=== PATIENT | female | born 1955 | race Caucasian/White ===

== ENCOUNTER 2017-05-08 | Inpatient (IN) | payer BC ==
--- NOTE | ~2017-05-08 | TN ---
Unit #: [id number] #: [id number] Patient: [facility]RISTIANSON [id number] [facility] [address] [place] [address] [id number] I MR#: [id number] NAME: LULY CHRISTIANSON ROOM: 71 Age: 62 Sex: F Admission Date: 05/08/2017 : 1955 Discharge Date: 05/11/2017 Attending Physician: Carlos De La Garza M.D. Primary Care Physician: Generic Doctor Not In System LOC TRANSFER NOTE DATE OF SERVICE: 05/14/2017 HISTORY OF PRESENT ILLNESS Ms. Christianson is a 62-year-old, , white female with history of alcohol dependence, who was stepped down to the outpatient treatment program from the adult inpatient psychiatric unit, where she was hospitalized under care of Dr. De La Garza from 05/08/2017 to 05/11/2017 and was brought to the hospital for alcohol dependence. On evaluation by me today, the patient was seen to be anxious, jittery, restless, tremulous, and tearful, and she stated that she was hospitalized because her family forced her to and she was not having a good time because she could not get out and get a drink and she was constantly having cravings; however, she reports that since she has been out of there, her family does not feel comfortable as she had just such a brief treatment duration there and they wanted her to go to a 30-day program which she does not want to do that and was seen to be tearful while talking about it and was seen to be quite anxious and restless and reports that she has not slept in the last several nights. However, she denies any suicidal ideations, intent, or plan. SUBSTANCE ABUSE HISTORY The patient reports long history of alcohol dependence and has been drinking regularly and heavily, though I noted that she was trying to mask and minimize her consumption. She denies any other substance abuse. PAST PSYCHIATRIC HISTORY The patient has [facility] and review of the medical records indicate currently she is not active in any treatment program, is not seeing a psychiatrist. PAST MEDICAL HISTORY No acute or chronic medical illnesses. ALLERGIES No known medication allergies. PERSONAL AND SOCIAL HISTORY A 62-year-old white female, who reports that she lives at home with her family and has fairly decent social support system. MENTAL STATUS EXAMINATION An elderly white female who was casually dressed with fair personal hygiene, appears to be in no acute distress or discomfort. She was awake and alert on interaction with intact orientation. Her mood was anxious Unit #: [id number] #: [id number] Patient: LULY CHRISTIANSON with a congruent affect. She denies any suicidal or homicidal ideations and also denies any auditory or visual hallucinations. Her insight and judgment remain slightly impaired. DIAGNOSTIC IMPRESSION Psychiatric: Alcohol dependence, moderate; alcohol-induced mood disorder. Medical: None. Stressors: Moderate psychosocial stressors. TREATMENT PLAN 1. The patient has presented with history of mood disorder and substance abuse. We will recommend enrolling her into the outpatient treatment program and maintaining her on her current medications. We will monitor her response and make further adjustments as needed. 2. Supportive therapy was provided to the patient. 3. Safe, structured, and nourishing environment will be provided. ESTIMATED LENGTH OF STAY 14 to 21 days. ABILITY TO HELP SELF Limited. WILLINGNESS TO HELP SELF The patient appears to be willing to help self. STRENGTHS 1. Communicative. 2. Cooperative. PROBLEMS 1. Chronic dysphoric symptoms. 2. Chronic chemical dependency. 3. Poor social support system. DISCHARGE CRITERIA This will be contingent upon the patient's ability to show resolution of her depression and anxiety and her ability to stay safe to herself, particularly after discharge from the program. Dictated by... Angelito Conner/jyothi TD: 05/15/2017 06:37 JOB #: [id number] LOC TRANSFER NOTE Page 1 of 1 X Lucretia Clinton MD X LOC TRANSFER NOTE
--- NOTE | ~2017-05-08 | HP ---
Unit #: [id number] #: [id number] Patient: LULY JENSEN [id number] [place] [address] [id number] MR#: [id number] NAME: LULY JENSEN ROOM: P171 Age: 62 Sex: F Admission Date: 05/08/2017 : 1955 Attending Physician: Carlos De La Garza M.D. Admitting Physician: Carlos De La Garza M.D. Primary Care Physician: Generic Doctor Not In System HISTORY AND PHYSICAL HISTORY OF PRESENT ILLNESS Luly is a 62 year old admitted to [facility] because of her abuse of alcohol. PAST MEDICAL HISTORY 1. Long history of alcohol abuse. 2. High blood pressure. 3. COPD. PAST SURGICAL HISTORY 1. x2. 2. Bilateral carpal tunnel release. ALLERGIES No known drug allergies. SOCIAL HISTORY Smokes greater than 1 pack per day. Drinks at least a fifth of liquor on a daily basis and denies illicit drug use. FAMILY HISTORY Medically noncontributory. REVIEW OF SYSTEMS CONSTITUTIONAL: No fever or chills. HEENT: Denies any sore throat, ear pain or runny nose. CARDIOVASCULAR: Denies chest pain, irregular heart rhythm or palpitations. CHEST: Denies shortness of breath or cough. No hemoptysis. GASTROINTESTINAL: Denies nausea, vomiting, diarrhea or chronic constipation. ENDOCRINE: Denies history of increased thirst or urination. No recent significant weight loss or gain. GENITOURINARY: Denies dysuria, frequency, or hematuria. SKIN: Denies any rashes. HEMATOLOGIC: Denies history of increased bleeding or bruising. MUSCULOSKELETAL: Denies any hot, swollen joints. No generalized muscle pain. NEUROLOGIC: Denies problems with vision or speech. No frequent, severe headaches. No numbness, tingling or weakness in any extremities. Denies loss of bladder or bowel control. CURRENT MEDICATIONS 1. Detox protocol. 2. Zestril 20 mg daily. Unit #: [id number] #: [id number] Patient: LULY JENSEN PHYSICAL EXAMINATION GENERAL: Alert, well-nourished, in no apparent distress. VITAL SIGNS: Blood pressure 184/98, heart rate 100, respirations 16, temperature 98.6. WEIGHT: 130. HEIGHT: 5 feet 2 inches. SKIN: Warm and dry without rash or lesion. HEENT: Normocephalic. TMs not viewed. Oral and nasal passages clear. Conjunctivae clear. PERRLA. EOMs intact. NECK: Supple without lymphadenopathy or thyromegaly. HEART: Regular rate and rhythm without murmur. CHEST: Decreased breath sounds bilaterally. ABDOMEN: Soft, nontender. : Not done. EXTREMITIES: No evidence of cyanosis, clubbing or edema. Moves all without focal deficit. NEUROLOGICAL: Grossly within normal limits. Cranial Nerves: II: Visual navarro are intact. III, IV AND : Extraocular movements are intact. Pupils are equal, round and reactive to light. V: Facial sensation is grossly normal. VII: Facial movements and expression are normal. VIII: Auditory acuity grossly intact. IX, X: Uvula is midline. Phonation is normal. XI: Patient shrugs shoulders and turns head normally. XII: Tongue protrudes in the midline. Sensory and Motor Function: Sensory and motor sensation is grossly normal. Motor: moves all extremities well. Coordination: Gait is normal. Deep Tendon Reflexes: Intact. IMPRESSION 1. Psychiatric admission. 2. Alcohol abuse. 3. Chronic obstructive pulmonary disease. 4. High blood pressure, not controlled on admission. RECOMMENDATIONS PSYCHIATRIC: Per psychiatrist. MEDICAL: 1. See no contraindication to participate in facility's activities. 2. Detox per protocol. 3. Continue Zestril. Monitor blood pressure q. shift. 4. Add Albuterol inhaler q. 4 hours p.r.n. MEDICAL PROGNOSIS Good. MEDICAL CONDITION Stable. Dictated by... Delores Christina PChadAChad-C. for Angelito Celeste/mitra Unit #: [id number] #: [id number] Patient: LULY JENSEN TD: 05/09/2017 15:01 JOB #: [id number] HISTORY AND PHYSICAL Page 1 of 1 X Delores Christina HISTORY AND PHYSICAL
--- NOTE | ~2017-05-08 | PA ---
Unit #: [id number] #: [id number] Patient: LULY JENSEN [id number] [place] [address] [id number] I MR#: [id number] NAME: LULY JENSEN ROOM: [facility] Age: 62 Sex: F Admission Date: 05/08/2017 : 1955 Date of Assessment: 05/09/2017 Attending Physician: Carlos De La Garza M.D. Admitting Physician: Carlos De La Garza M.D. Primary Care Physician: Generic Doctor Not In System PSYCHIATRIC ASSESSMENT DATE OF SERVICE 05/09/2017. INFORMANTS Considered reliable. CHIEF COMPLAINT "I've been drinking way too much alcohol." HISTORY OF PRESENT ILLNESS This patient is a 62-year-old female, who was admitted to the hospital for alcohol detox. She was complaining of nausea and headaches. She is drinking 10 drinks per day. She is unable to stop drinking at this time. She reports prior treatment at age 28. She did report a long period of sobriety at approximately 10 years. The patient is currently living with her . She denies any SI or HI and contracts for safety. The patient denies any other illicit drug use. The patient is drinking up to fifth of liquor on a daily basis at times. PAST PSYCHIATRIC HISTORY The patient reports prior substance abuse treatment for her alcohol at age 28. She is drinking up to a fifth of liquor a day. She denies any other psychiatric history. FAMILY PSYCHIATRIC HISTORY The patient reports significant family history of alcohol abuse. SOCIAL HISTORY The patient is living with her and she has 3 children. She retired from [employer] 10 years ago. She spends most of her time with a sedentary lifestyle with abuse of alcohol. PAST MEDICAL HISTORY High blood pressure and COPD. MEDICATIONS Vistaril 20 mg one p.o. daily, albuterol inhaler q.4 hours p.r.n. ALLERGIES No known drug allergies. SUBSTANCE ABUSE HISTORY The patient has been drinking up to a fifth of liquor daily. She denies Unit #: [id number] #: [id number] Patient: LULY JENSEN any illicit drug use. She is smoking one pack of cigarettes per day. MENTAL STATUS EXAMINATION This patient is a 62-year-old female, who is a bit disheveled and appears older than her stated age. She is alert and oriented x3 and cognitively intact. The patient is goal oriented and focused on her sobriety. She is having headaches and nausea related to withdrawal. Her thought processes are logical and coherent. Speech is regular rate and rhythm. The patient is ambulatory without difficulty. Her intellectual capabilities appeared to be in the average range based on her fund of knowledge. There are no overt psychotic symptoms. She denies any SI or HI and contracts for safety. Memory short-term and long-term is intact. Insight and judgment are fair to good at this time. ASSETS AND LIABILITIES The patient's assets include her voluntary treatment for alcohol detox. Liabilities include inability to maintain sobriety and lack of followup treatment for her substance abuse. ADMITTING DIAGNOSES AXIS I: Alcohol dependence, acute withdrawal uncomplicated. AXIS II: Deferred. AXIS III: Hypertension and chronic obstructive pulmonary disease. AXIS IV: AXIS V: PSYCHIATRIC TREATMENT PLAN This patient was admitted to [facility] for alcohol detox. She will be placed on appropriate detox medications p.r.n. She is encouraged to maintain adequate fluid intake. H and P and laboratory studies will be ordered and reviewed. She will attend group therapy and participate in unit activities. Treatment goals include a safe detox without complications. ESTIMATED LENGTH OF STAY 5 days. Dictated by... Leslie Bocanegra A.P.R.N. for Carlos De La Garza M.D. DONNY/modl TD: 05/12/2017 06:02 JOB #: [id number] PSYCHIATRIC ASSESSMENT Page 1 of 1 X Leslie Bocanegra PSYCHIATRIC ASSESSMENT
[2017-05-09 11:31] LABS: BASOPHIL% 0.2 % (0-2.5); EOSINOPHIL% 0.1 % (0.0-7.0); HEMATOCRIT 47.9 % (35.0-45.0); HEMOGLOBIN 16.2 gm/dL (12.0-16.0); LYMPHOCYTE# 1.5 X10e3 (1.0-3.5); LYMPHOCYTE% 18.2 % (17.0-45.0); MEAN CELL VOLUME 98.5 FL (83-96); MEAN CORPUSCULAR HEMOGLOBIN 33.4 PG (28-34); MEAN CORPUSCULAR HGB CONC 33.9 g/dL (30-36); MEAN PLATELET VOLUME 9.6 FL (6.5-11.5); MONOCYTE# 0.5 X10e3 (0-1.0); MONOCYTE% 6.5 % (3.0-12.0); PLATELET COUNT 87 X10e3 (140-420); RED BLOOD COUNT 4.86 X10e (3.90-5.30); RED CELL DISTRIBUTION WIDTH 14.6 % (11.0-15.5)
[2017-05-09 11:33] LABS: DIFF IND NO
[2017-05-09 11:40] LABS: ALBUMIN SERUM 4.3 g/dL (3.5-5.0); CALCIUM SERUM 9.8 mg/dL (8.4-10.2); CREATININE SERUM 0.5 mg/dL (0.6-1.4); GLOM FILT RATE Estimated 105.2 mL/min (>60); POTASSIUM 3.9 mmol/L (3.5-5.1); PROTEIN TOTAL SERUM 7.3 g/dL (6.0-8.3)
[2017-05-10 12:39] LABS: AMPHETAMINE NEG (NEG); BARBITURATES NEG (NEG); BENZODIAZEPINES POS (NEG); COCAINE NEG (NEG); MARIJUANA NEG (NEG); OPIATES NEG (NEG); TRICYCLIC ANTIDEPRESSANTS NEG (NEG); U METHADONE NEG (NEG)
== END 2017-05-11 12:30 | DRG 897 ==
LOC: P1E 12:46
PROVIDERS: Psychiatry & Neurology Psychiatry
PROC: HZ2ZZZZ Detoxification Services for Substance Abuse Treatment (ICD-10-PCS; principal; 2017-05-08)
DX: F10.239 Alcohol dependence with withdrawal, unspecified (principal); I10 Essential (primary) hypertension; J44.9 Chronic obstructive pulmonary disease, unspecified; F17.210 Nicotine dependence, cigarettes, uncomplicated
CPT/HCPCS: 80053; 80307; 85025

== ENCOUNTER 2017-05-08 02:14 | Emergency (ER) | payer BC ==
--- NOTE | ~2017-05-08 | CR72 ---
[facility] A Service of [facility] & [facility] RADIOLOGY TEXT RESULTS PATIENT: LULY JENSEN LOCATION: [facility] : [birth year] UNIT #: [id number] AGE: [address]: Jt Chung MD SEX: F ORDER DR: [id number] [facility] [address] [place], [place] [address] [id number] MR#: [id number] Acc #: [id number] NAME: LULY JENSEN : 1955 SEX: F STUDY DATE/TIME: 05/08/2017 3:00 UNIT: [facility] ROOM: STUDY DESCRIPTION: CR Chest Single View Portable Attending Physician: Jt Chung M.D. Ordering Physician: Home Piper D.O. Primary Care Physician: Primary Care Physician No MEDICAL IMAGING REPORT This report is preliminary unless electronic signature is present EXAM Single view chest INDICATION Cough for 6 months. Shortness of air and COPD. FINDINGS Single portable AP of the chest without comparison. The heart and mediastinal contours are within normal limits. Lungs are hyperinflated compatible with an obstructive lung disease. No focal consolidation. No pleural effusion. IMPRESSION COPD. Dictated by... Guero Gramajo M.D. THIS IS AN ELECTRONICALLY VERIFIED REPORT Guero Gramajo M.D. at 05/11/2017 4:14 PM Divina TD: 05/08/2017 08:52 JOB #: [id number] MEDICAL IMAGING REPORT Page 1 of 1 COPY
[2017-05-08 03:52] LABS: BASOPHIL% 0.8 % (0-2.5); EOSINOPHIL% 0.1 % (0.0-7.0); HEMATOCRIT 49.2 % (35.0-45.0); HEMOGLOBIN 16.5 gm/dL (12.0-16.0); LYMPHOCYTE# 1.9 X10e3 (1.0-3.5); LYMPHOCYTE% 30.7 % (17.0-45.0); MEAN CELL VOLUME 97.8 FL (83-96); MEAN CORPUSCULAR HEMOGLOBIN 32.9 PG (28-34); MEAN CORPUSCULAR HGB CONC 33.6 g/dL (30-36); MEAN PLATELET VOLUME 8.8 FL (6.5-11.5); MONOCYTE# 0.3 X10e3 (0-1.0); MONOCYTE% 5.7 % (3.0-12.0); NEUTROPHIL# 3.8 X10e3 (1.5-7.1); NEUTROPHIL% 62.7 % (40-75); PLATELET COUNT 96 X10e3 (140-420); RED BLOOD COUNT 5.03 X10e (3.90-5.30); RED CELL DISTRIBUTION WIDTH 14.4 % (11.0-15.5); WHITE BLOOD COUNT 6.1 X10e3 (4.0-10.5)
[2017-05-08 03:52] LABS: POC - CKMB 3.2 ng/mL (0.0-7.9); POC - TROPONIN <0.05 ng/mL (<=0.05)
[2017-05-08 03:54] LABS: DIFF IND NO
[2017-05-08 04:19] LABS: ALKALINE PHOSPHATASE 97 U/L (32-92); ALT (SGPT) 48 U/L (10-40); AST (SGOT) 97 U/L (10-42); BILIRUBIN, DIRECT 0.2 mg/dL (0.0-0.2); BILIRUBIN,INDIRECT 0.6 mg/dL (0.0-0.9); BILIRUBIN,TOTAL 0.8 mg/dL (0.2-2.0); BLOOD UREA NITROGEN 22 mg/dL (9-23); CALCIUM SERUM 8.4 mg/dL (8.4-10.2); CARBON DIOXIDE 21 mmol/L (22-31); CHLORIDE 94 mmol/L (100-111); CREATININE SERUM 0.5 mg/dL (0.6-1.4); GLOM FILT RATE Estimated 105.2 mL/min (>60); GLUCOSE FASTING 83 mg/dL (70-110); POTASSIUM 3.4 mmol/L (3.5-5.1); PROTEIN TOTAL SERUM 6.9 g/dL (6.0-8.3); SALICYLATE <4.0 mg/dL; SODIUM 133 mmol/L (135-145)
[2017-05-08 04:21] LABS: ACETAMINOPHEN <10 ug/mL; ALCOHOL BLOOD 335 mg/dL (0)
[2017-05-08 06:53] LABS: AMPHETAMINE NEG (NEG); BARBITURATES NEG (NEG); BENZODIAZEPINES NEG (NEG); COCAINE NEG (NEG); MARIJUANA NEG (NEG); OPIATES NEG (NEG); TRICYCLIC ANTIDEPRESSANTS NEG (NEG); U METHADONE NEG (NEG)
== END 2017-05-08 09:50 ==
LOC: CED 02:14
PROVIDERS: Emergency Medicine
DX: F10.129 Alcohol abuse with intoxication, unspecified (principal); I10 Essential (primary) hypertension; J44.9 Chronic obstructive pulmonary disease, unspecified
CPT/HCPCS: 36415; 71010; 80048; 80076; 80307; 82553; 83690; 84484; 85025; 94640; 96374; 96375; 96376; 99284; G0480; J2405; J2930